=== PATIENT | male | born 1950 | race Caucasian/White ===

== ENCOUNTER 2016-07-16 18:27 | Emergency (ER) | payer OTHER, MEDICAID ==
[2016-07-16] MEDS ORDERED: FAMOTIDINE 20 MG/NACL 50 ML IV ONE (18:37)
[2016-07-16] MEDS ORDERED: LIDOCAINE 2% VISCOUS 15 ML UDCUP PO ONE (18:37)
[2016-07-16] MEDS ORDERED: MAG HYDROX/AL HYDROX/SIMETH 30 ML UDCUP PO ONE (18:37)
[2016-07-16] MEDS ORDERED: HYOSCYAMINE SULFATE 0.125 MG TAB PO ONE (18:37)
[2016-07-16] MEDS ORDERED: NS 1,000 ML IV ONE (18:37)
[2016-07-16 18:41] VITALS: TEMP 98.2; O2SAT 92
--- NOTE | 2016-07-16 18:41 | EDPHY ---
H & P Stated Complaint: SOB, GERD, treated at [facility] with Prilosec, no resolution. HPI/ROS: HPI CHIEF COMPLAINT: GERD, reflux, burning pain epigastric up to his throat, shortness of breath, congestion HISTORY OF PRESENT ILLNESS: This patient very pleasant 58-year-old male, significant past medical history for unspecified dementia, alcohol use, reflux, presents emergency room with abdominal bloating and what he describes is burning sensation in the middle epigastric region up to his throat. States it comes and goes. Feels like his previous history of GERD. Denies chest pain, chest pressure,, generalized weakness, vomiting. He was given Prilosec at [facility] where she resides this did not help him. Was sent to the emergency room further evaluation. Of note this patient is history of View systems somewhat limited due the patient 's underlying mental illness questionable dementia. Variant in-direct answers. Past Medical History: GERD, alcoholism, alcohol use, nonspecific dementia Past Surgical History: Denies recent surgeries Social History: Denies use of alcohol last 24 hours drugs tobacco Family History: Noncontributory ROS REVIEW OF SYSTEMS: A comprehensive 10 point review of systems is otherwise negative aside from elements mentioned in the history of present illness. Exam Constitutional appears well nontoxic, triage nursing summary reviewed, vital signs reviewed, awake/alert. Eyes normal conjunctivae and sclera, EOMI, PERRLA. HENT normal inspection, atraumatic, moist mucus membranes, no epistaxis, neck supple/ no meningismus, no raccoon eyes. Respiratory clear to auscultation bilaterally, normal breath sounds, no respiratory distress, no wheezing. Cardiovascular rate normal, regular rhythm, no murmur, no edema, distal pulses normal. Gastrointestinal no tender palpation, soft, non-tender, no rebound, no guarding, normal bowel sounds, no distension, no pulsatile mass. Genitourinary no CVA tenderness. Musculoskeletal no midline vertebral tenderness, full range of motion, no calf swelling, no tenderness of extremities, no meningismus, good pulses, neurovascularly intact. Skin pink, warm, & dry, no rash, skin atraumatic. Neurologic awake, alert and oriented x 3, AAOx3, moves all 4 extremities equally, motor intact, sensory intact, CN II-XII intact, normal cerebellar, normal vision, normal speech. Psychiatric normal mood/affect. Heme/Lymph/Immune no lymphadenopathy. Differential diagnosis includes but is not limited to and in no particular order : reflux, GERD, doubt ACS, Bowel obstruction, appendicitis, gallbladder disease , diverticulitis, colitis, enteritis, perforated viscus, gastritis, GERD, esophagitis, urinary tract infection, pyelonephritis, kidney stones Medical Decision Making: Plan for this patient full cardiac cath rn, IV establishment, IV Pepcid with GI cocktail, chest x-ray EKG, troponin, abdominal blood work, KUB including lipase. And re-evaluation. Re-evaluation: EKG interpretation by me on record in [employer] system. Impression time of EKG 1853, this is sinus rhythm rate of 92 LVH present. Otherwise unremarkable EKG specifically no acute ischemia no ST elevation, ST depression, T-wave abnormalities. Prolonged intervals. ED x-ray chest one view: elevated right hemidiaphragm otherwise unremarkable. Image interpreted myself ED x-ray KUB; abnormal bowel gas pattern. Image interpreted myself. No free air. No air-fluid levels. 1915: Re-evaluation at this time. Patient still complaining of abdominal distention abdominal discomfort. Blood work has been reviewed is reassuring. Lactic less than 2, nonischemic EKG. Chest x-ray and KUB reviewed. Given patient's ongoing abdominal pain, KUB that appears slightly abnormal plan on CT abdomen pelvis with IV contrast 2012: CT results called to me by Dr. garcia. CT abdomen pelvis with IV contrast shows gas is tension of the colon, otherwise no acute inflammatory process no bowel obstruction. No acute inflammatory process seen on CT. 2030: I did review this patient's blood work, CT scan findings. No acute inflammatory process seen. No evidence of infection. Patient is resting comfortably without any vomiting. Vital signs are stable. Negative troponin negative EKG. Chest x-ray KUB, CT scan reviewed. gaseous distention otherwise unremarkable. Re-examination of his abdomen at 8:30 p.m.. Abdomen is soft nontender no guarding or peritoneal signs. He feels much better would like to be discharged back. I did give him strict return precautions he understands return emergency room if he develops abdominal pain, fever, vomiting. Most likely cause of abdominal pain is gasous distention Source: Patient - Personal History Current Tetanus/Diphtheria Vaccine: Unsure Current Tetanus Diphtheria and Acellular Pertussis (TDAP): Unsure - Medical/Surgical History Hx Asthma: No Hx Chronic Respiratory Disease: No Hx Diabetes: No Hx Cardiac Disease: No Hx Renal Disease: No Hx Cirrhosis: No Hx Alcoholism: Yes Hx HIV/AIDS: No Hx Splenectomy or Spleen Trauma: No Other PMH: Essential HTN, GERD, Hypothyroidism, Dementia- and behaviour issues, ETOH abuse, ?under Adult Protective Services. - Social History Smoking Status: Unknown if ever smoked Constitutional: Initial Vital Signs Temperature (C) 36.8 C 07/16/16 18:34 Heart Rate 93 07/16/16 18:34 Respiratory Rate 20 07/16/16 18:34 Blood Pressure 150/89 H 07/16/16 18:34 O2 Sat (%) 92 07/16/16 18:34 O2 Delivery Mode Room Air Allergies/Adverse Reactions: No Known Allergies Allergy (Unverified 07/16/16 18:38) Home Medications: Medication Instructions Recorded Acetaminophen 07/16/16 Amlodipine Besylate 07/16/16 Carafate Oral Liquid 07/16/16 Cholecalciferol 07/16/16 Levothyroxine 07/16/16 Magnesium Oxide 07/16/16 Milk of Magnesia 07/16/16 Miralax 17 gm (*) 07/16/16 Omeprazole 07/16/16 Ondansetron 07/16/16 Ranitidine HCl 07/16/16 Tums Ultra 07/16/16 Medical Decision Making - Diagnostics Imaging: Imaging Impressions Abdomen X-Ray 07/16/16 18:37 Impression: Findings suggest ileus or small bowel obstruction. Chest X-Ray 07/16/16 18:38 Impression: 1. Elevation of the right hemidiaphragm. 2. Right AC joint grade 1 separation, of unknown acuity. - Data Points Laboratory Results: Laboratory Results 07/16/16 18:35 07/16/16 18:35 07/16/16 07/16/16 07/16/16 18:35 18:35 18:35 WBC 7.74 10^3/uL 10^3/uL (3.80-9.50) RBC 4.61 10^6/uL 10^6/uL (4.40-6.38) Hgb 14.8 g/dL g/dL (13.7-17.5) Hct 42.1 % % (40.0-51.0) MCV 91.3 fL fL (81.5-99.8) MCH 32.1 pg pg (27.9-34.1) MCHC 35.2 g/dL g/dL (32.4-36.7) RDW 12.9 % % (11.5-15.2) Plt Count 256 10^3/uL 10^3/uL (150-400) MPV 9.6 fL fL (8.7-11.7) Neut % (Auto) 61.2 % % (39.3-74.2) Lymph % (Auto) 21.8 % % (15.0-45.0) [place] % (Auto) 11.5 % % (4.5-13.0) Eos % (Auto) 4.4 % % (0.6-7.6) Baso % (Auto) 0.6 % % (0.3-1.7) Nucleat RBC Rel Count 0.0 % % (0.0-0.2) Absolute Neuts (auto) 4.73 10^3/uL 10^3/uL (1.70-6.50) Absolute Lymphs (auto) 1.69 10^3/uL 10^3/uL (1.00-3.00) Absolute Monos (auto) 0.89 10^3/uL H 10^3/uL (0.30-0.80) Absolute Eos (auto) 0.34 10^3/uL 10^3/uL (0.03-0.40) Absolute Basos (auto) 0.05 10^3/uL 10^3/uL (0.02-0.10) Absolute Nucleated RBC 0.00 10^3/uL 10^3/uL (0-0.01) Immature Gran % 0.5 % % (0.0-1.1) Immature Gran # 0.04 10^3/uL 10^3/uL (0.00-0.10) PT 12.4 SEC SEC (12.0-15.0) INR 0.93 (0.83-1.16) APTT 28.8 SEC SEC (23.0-38.0) VBG Lactic Acid Sodium 139 mEq/L mEq/L (134-144) Potassium 4.1 mEq/L mEq/L (3.5-5.2) Chloride 103 mEq/L mEq/L (97-110) Carbon Dioxide 27 mEq/l mEq/l (22-31) Anion Gap 9 mEq/L mEq/L (8-16) BUN 13 mg/dL mg/dL (7-23) Creatinine 1.0 mg/dL mg/dL (0.7-1.3) Estimated GFR > 60 Glucose 101 mg/dL H mg/dL (70-100) Calcium 9.5 mg/dL mg/dL (8.5-10.4) Total Bilirubin 0.5 mg/dL mg/dL (0.1-1.4) Conjugated Bilirubin 0.4 mg/dL mg/dL (0.0-0.5) Unconjugated Bilirubin 0.1 mg/dL mg/dL (0.0-1.1) AST 26 IU/L IU/L (17-59) ALT 33 IU/L IU/L (21-72) Alkaline Phosphatase 91 IU/L IU/L (38-126) Troponin I < 0.012 ng/mL ng/mL (0-0.034) Total Protein 7.4 g/dL g/dL (6.3-8.2) Albumin 4.2 g/dL g/dL (3.5-5.0) Lipase 54.0 IU/L IU/L (23-300) Ethyl Alcohol < 10 mg/dL mg/dL (0-10) 07/16/16 18:30 WBC RBC Hgb Hct MCV MCH MCHC RDW Plt Count MPV Neut % (Auto) Lymph % (Auto) [place] % (Auto) Eos % (Auto) Baso % (Auto) Nucleat RBC Rel Count Absolute Neuts (auto) Absolute Lymphs (auto) Absolute Monos (auto) Absolute Eos (auto) Absolute Basos (auto) Absolute Nucleated RBC Immature Gran % Immature Gran # PT INR APTT VBG Lactic Acid 1.9 mmol/L mmol/L (0.7-2.1) Sodium Potassium Chloride Carbon Dioxide Anion Gap BUN Creatinine Estimated GFR Glucose Calcium Total Bilirubin Conjugated Bilirubin Unconjugated Bilirubin AST ALT Alkaline Phosphatase Troponin I Total Protein Albumin Lipase Ethyl Alcohol Medications Given: Discontinued Medications Al Hydroxide/Mg Hydroxide (Maalox Susp) 30 ml PO ONCE ONE Stop: 07/16/16 18:38 Last Admin: 07/16/16 19:01 Dose: 30 ml Hydromorphone HCl (Dilaudid) 0.5 mg IVP EDNOW ONE Stop: 07/16/16 19:15 Last Admin: 07/16/16 19:37 Dose: 0.5 mg Hyoscyamine Sulfate (Levsin, Hyomax-Sl) 0.25 mg PO ONCE ONE Stop: 07/16/16 18:38 Last Admin: 07/16/16 19:01 Dose: 0.25 mg Sodium Chloride (Ns) 1,000 mls @ 0 mls/hr IV ONCE ONE PRN Reason: Wide Open Stop: 07/16/16 18:38 Last Admin: 07/16/16 19:01 Dose: 1,000 mls Famotidine/Sodium Chloride (Pepcid 20 Mg (Premix)) 50 mls @ 200 mls/hr IV EDNOW ONE Stop: 07/16/16 18:51 Last Admin: 07/16/16 19:01 Dose: 50 mls Lidocaine (Lidocaine 2% Viscous) 15 ml PO ONCE ONE Stop: 07/16/16 18:38 Last Admin: 07/16/16 19:01 Dose: 15 ml Departure - Departure Disposition: Home, Routine, Self-Care Clinical Impression: Gaseous abdominal distention GERD (gastroesophageal reflux disease) Qualifiers: Esophagitis presence: with esophagitis Qualified Code(s): K21.0 - Gastro- esophageal reflux disease with esophagitis Condition: Good Instructions: Acute Abdominal Pain (ED), Gastroesophageal Reflux Disease (ED) Additional Instructions: 1. Stay well-hydrated drink lots of fluids. 2.Do not eat spicy fatty greasy foods. Stay away from coffee or shoes. . No alcohol. 3. continue your reflux medication. 4. You had blood work that was reassuring here in the emergency room no signs of infection. Your EKG and troponin were normal. Her CT scan showed no acute infection or inflammatory process. There was some gas in your colon. Referrals: Patient,NotPresent [Unknown] - As per Instructions
[2016-07-16 18:50] LABS: % IMMATURE GRANULYOCYTES 0.5 % (0.0-1.1); ABSOLUTE IMMATURE GRANULOCYTES 0.04 10^3/uL (0.00-0.10); ADD DIFF? NO; ADD MORPH? NO; ADD SCAN? NO; ATYPICAL LYMPHOCYTE FLAG 10 (0-99); FRAGMENT RBC FLAG 0 (0-99); HEMATOCRIT 42.1 % (40.0-51.0); HEMOGLOBIN 14.8 g/dL (13.7-17.5); LEFT SHIFT FLG 0 (0-99); LIPEMIA HEMOLYSIS FLAG 90 (0-99); MEAN CELL HEMOGLOBIN 32.1 pg (27.9-34.1); MEAN CELL HEMOGLOBIN CONCENTR. 35.2 g/dL (32.4-36.7); MEAN CELL VOLUME 91.3 fL (81.5-99.8); MEAN PLATELET VOLUME 9.6 fL (8.7-11.7); PLATELET CLUMPS FLAG 0 (0-99); PLATELET COUNT 256 10^3/uL (150-400); RED BLOOD CELL COUNT 4.61 10^6/uL (4.40-6.38); RED CELL DISTRIBUTION WIDTH 12.9 % (11.5-15.2)
--- NOTE | 2016-07-16 18:56 | CPEKG ---
Heart Rate: 92 RR Interval: 652 P-R Interval: 152 QRSD Interval: 86 QT Interval: 360 QTC Interval: 446 P [place]: 41 QRS [place]: 57 T Wave [place]: 70 EKG Severity - NORMAL ECG - EKG Impression: SINUS RHYTHM Electronically Signed By: Thien Rabago 16-Jul-2016 22:46:26
[2016-07-16 18:59] LABS: APTT 28.8 SEC (23.0-38.0); INR 0.93 (0.83-1.16); PROTIME(PATIENT) 12.4 SEC (12.0-15.0)
[2016-07-16 19:09] LABS: ALANINE AMINOTRANSFERASE 33 IU/L (21-72); ALBUMIN 4.2 g/dL (3.5-5.0); ALKALINE PHOSPHATASE 91 IU/L (38-126); ANION GAP 9 mEq/L (8-16); ASPARTATE AMINOTRANSFERASE 26 IU/L (17-59); BILIRUBIN,TOTAL 0.5 mg/dL (0.1-1.4); BILIRUBIN-CONJUGATED 0.4 mg/dL (0.0-0.5); BILIRUBIN-UNCONJUGATED 0.1 mg/dL (0.0-1.1); CALCIUM 9.5 mg/dL (8.5-10.4); CARBON DIOXIDE 27 mEq/l (22-31); CHLORIDE 103 mEq/L (97-110); ETHANOL SERUM < 10 mg/dL (0-10); GLOMERULAR FILTRATION RATE > 60; GLUCOSE 101 mg/dL (70-100); POTASSIUM 4.1 mEq/L (3.5-5.2); SODIUM 139 mEq/L (134-144); TOTAL PROTEIN 7.4 g/dL (6.3-8.2)
[2016-07-16] MEDS ORDERED: HYDROmorphONE/DILAUDID 1 MG/ML SYR IVP ONE (19:14)
[2016-07-16 19:20] LABS: TROPONIN I < 0.012 ng/mL (0-0.034)
[2016-07-16] MEDS ORDERED: IOPAMIDOL (ISOVUE-300) 100 ML BTL IV ONE (19:20)
[2016-07-16] MEDS ORDERED: LORazepam 2 MG/ML INJ IM ONE (20:51)
[2016-07-16 22:37] VITALS: BP 145/87; PULSE 92; RESP 18
== END 2016-07-16 22:37 | disposition home or self-care (01) ==
DX: R14.0 Abdominal distension (gaseous) (principal); K21.0 Gastro-esophageal reflux disease with esophagitis; I10 Essential (primary) hypertension; E03.9 Hypothyroidism, unspecified; F03.91 Unspecified dementia, unspecified severity, with behavioral disturbance
CPT/HCPCS: 71010; 74000; 74177; 93005; 96361; 96365; 96372; 96375; 99285; J1170; J2060; Q9967; G0480

== ENCOUNTER 2016-09-10 09:43 | Emergency (ER) | payer OTHER, MEDICAID ==
[2016-09-10 10:01] VITALS: RESP 16
--- NOTE | 2016-09-10 10:15 | EDPHY ---
H & P Time Seen by Provider: 09/10/16 09:49 HPI/ROS: CHIEF COMPLAINT: Combative HISTORY OF PRESENT ILLNESS: This is a 66-year-old male brought in by EMS from [facility]. EMS report from [facility] patient has been combative throwing items at staff threatening staff, patient was also found to have alcohol in his room. Patient has a history of dementia and other behavioral issues. No injuries. Patient denies any alcohol use, he did state " those people were trying to go in my room, I told them was going to kill him. When I want to have a drink I should be able to have a drink" REVIEW OF SYSTEMS: Constitutional: No fever, no chills. Eyes: No discharge. ENT: No sore throat. Cardiovascular: No chest pain, no palpitations. Respiratory: No cough, no shortness of breath. Gastrointestinal: No abdominal pain, no vomiting. Genitourinary: No hematuria. Musculoskeletal: No back pain. Skin: No rashes. Neurological: No headache. Denies SI Smoking Status: Never smoked Physical Exam: General Appearance: Alert, no distress. Eyes: Pupils equal and round no pallor or injection. ENT, Mouth: Mucous membranes moist. Respiratory: There are no retractions, lungs are clear to auscultation. Cardiovascular: Regular rate and rhythm. Gastrointestinal: Abdomen is soft and nontender, no masses, bowel sounds normal. Neurological: No focal deficits Skin: Warm and dry, no rashes. Musculoskeletal: Neck is supple nontender. Extremities: symmetrical, full range of motion. Psychiatric: Patient is oriented X 3, calm, no agitation, flat affect. Constitutional: Initial Vital Signs Temperature (C) 36.6 C 09/10/16 09:43 Heart Rate 92 09/10/16 09:43 Respiratory Rate 16 09/10/16 09:43 Blood Pressure 141/92 H 09/10/16 09:43 O2 Sat (%) 93 09/10/16 09:43 O2 Delivery Mode Room Air Allergies/Adverse Reactions: No Known Allergies Allergy (Unverified 07/16/16 18:38) Home Medications: Medication Instructions Recorded Acetaminophen 07/16/16 Amlodipine Besylate 07/16/16 Carafate Oral Liquid 07/16/16 Cholecalciferol 07/16/16 Levothyroxine 07/16/16 Magnesium Oxide 07/16/16 Milk of Magnesia 07/16/16 Miralax 17 gm (*) 07/16/16 Omeprazole 07/16/16 Ondansetron 07/16/16 Ranitidine HCl 07/16/16 Tums Ultra 07/16/16 Medical Decision Making ED Course/Re-evaluation: Discussed plan of care with patient: CBC, BMP, urine drug screen, psych evaluation. 1110: Spoke with Carlos Alberto with [facility], patient appropriate to go back to [facility], Patient is not on M1 hold. 1200: patient re-evaluation no apparent distress, calm, appropriate behavior 1330: patient will be transported back to [facility]. discussed all discharge instructions with receive facility Differential Diagnosis: Other differential diagnosis considered but not limited to psychosis, AMS due to intoxication, and homicidal ideation - Data Points Laboratory Results: Laboratory Results 09/10/16 10:16 09/10/16 10:16 09/10/16 09/10/16 09/10/16 11:30 10:16 10:16 WBC 7.46 10^3/uL 10^3/uL (3.80-9.50) RBC 4.67 10^6/uL 10^6/uL (4.40-6.38) Hgb 14.8 g/dL g/dL (13.7-17.5) Hct 42.6 % % (40.0-51.0) MCV 91.2 fL fL (81.5-99.8) MCH 31.7 pg pg (27.9-34.1) MCHC 34.7 g/dL g/dL (32.4-36.7) RDW 12.8 % % (11.5-15.2) Plt Count 269 10^3/uL 10^3/uL (150-400) MPV 9.8 fL fL (8.7-11.7) Neut % (Auto) 65.1 % % (39.3-74.2) Lymph % (Auto) 21.2 % % (15.0-45.0) [place] % (Auto) 8.6 % % (4.5-13.0) Eos % (Auto) 4.3 % % (0.6-7.6) Baso % (Auto) 0.5 % % (0.3-1.7) Nucleat RBC Rel Count 0.0 % % (0.0-0.2) Absolute Neuts (auto) 4.86 10^3/uL 10^3/uL (1.70-6.50) Absolute Lymphs (auto) 1.58 10^3/uL 10^3/uL (1.00-3.00) Absolute Monos (auto) 0.64 10^3/uL 10^3/uL (0.30-0.80) Absolute Eos (auto) 0.32 10^3/uL 10^3/uL (0.03-0.40) Absolute Basos (auto) 0.04 10^3/uL 10^3/uL (0.02-0.10) Absolute Nucleated RBC 0.00 10^3/uL 10^3/uL (0-0.01) Immature Gran % 0.3 % % (0.0-1.1) Immature Gran # 0.02 10^3/uL 10^3/uL (0.00-0.10) Sodium 144 mEq/L mEq/L (134-144) Potassium 3.8 mEq/L mEq/L (3.5-5.2) Chloride 103 mEq/L mEq/L (97-110) Carbon Dioxide 27 mEq/l mEq/l (22-31) Anion Gap 14 mEq/L mEq/L (8-16) BUN 16 mg/dL mg/dL (7-23) Creatinine 0.8 mg/dL mg/dL (0.7-1.3) Estimated GFR > 60 Glucose 105 mg/dL H mg/dL (70-100) Calcium 9.5 mg/dL mg/dL (8.5-10.4) Urine Opiates Screen NEGATIVE (NEGATIVE) Urine Barbiturates NEGATIVE (NEGATIVE) Ur Phencyclidine Scrn NEGATIVE (NEGATIVE) Ur Amphetamine Screen NEGATIVE (NEGATIVE) U Benzodiazepines Scrn NEGATIVE (NEGATIVE) Urine Cocaine Screen NEGATIVE (NEGATIVE) U Marijuana (THC) Screen NEGATIVE (NEGATIVE) Ethyl Alcohol < 10 mg/dL mg/dL (0-10) Departure - Departure Disposition: Home, Routine, Self-Care Clinical Impression: Dementia Qualifiers: Dementia type: unspecified type Dementia behavioral disturbance: with behavioral disturbance Qualified Code(s): F03.91 - Unspecified dementia with behavioral disturbance Condition: Good Instructions: Dementia (ED) Additional Instructions: 1. Have patient follow up with primary care physician at [facility] Referrals: Patient,NotPresent [Primary Care Provider] - As per Instructions [facility],. [Clinic] - As per Instructions
[2016-09-10 10:24] LABS: % IMMATURE GRANULYOCYTES 0.3 % (0.0-1.1); ABSOLUTE IMMATURE GRANULOCYTES 0.02 10^3/uL (0.00-0.10); ADD DIFF? NO; ADD MORPH? NO; ADD SCAN? NO; ATYPICAL LYMPHOCYTE FLAG 10 (0-99); FRAGMENT RBC FLAG 0 (0-99); HEMATOCRIT 42.6 % (40.0-51.0); HEMOGLOBIN 14.8 g/dL (13.7-17.5); LEFT SHIFT FLG 0 (0-99); LIPEMIA HEMOLYSIS FLAG 90 (0-99); MEAN CELL HEMOGLOBIN 31.7 pg (27.9-34.1); MEAN CELL HEMOGLOBIN CONCENTR. 34.7 g/dL (32.4-36.7); MEAN CELL VOLUME 91.2 fL (81.5-99.8); MEAN PLATELET VOLUME 9.8 fL (8.7-11.7); PLATELET CLUMPS FLAG 0 (0-99); PLATELET COUNT 269 10^3/uL (150-400); RED BLOOD CELL COUNT 4.67 10^6/uL (4.40-6.38); RED CELL DISTRIBUTION WIDTH 12.8 % (11.5-15.2)
[2016-09-10 10:39] LABS: ANION GAP 14 mEq/L (8-16); CALCIUM 9.5 mg/dL (8.5-10.4); CARBON DIOXIDE 27 mEq/l (22-31); CHLORIDE 103 mEq/L (97-110); CREATININE 0.8 mg/dL (0.7-1.3); ETHANOL SERUM < 10 mg/dL (0-10); GLOMERULAR FILTRATION RATE > 60; GLUCOSE 105 mg/dL (70-100); POTASSIUM 3.8 mEq/L (3.5-5.2); SODIUM 144 mEq/L (134-144)
[2016-09-10 13:50] VITALS: BP 122/78; PULSE 81; TEMP 97.7; O2SAT 98
== END 2016-09-10 14:18 | disposition home or self-care (01) ==
LOC: EDUNIT#
DX: F03.91 Unspecified dementia, unspecified severity, with behavioral disturbance (principal)
CPT/HCPCS: 80305; G0480

== ENCOUNTER 2017-01-21 11:17 | Observation (INO) | payer OTHER, MEDICAID ==
--- NOTE | 2017-01-21 12:12 | EDPHY ---
General - Diagnostics EKG: I reviewed patient's EKG. See [email or web address] system for interpretation <Derek Lopez - Last Filed: 01/21/17 15:17> - History Smoking Status: Never smoked <Darin Raygoza - Last Filed: 01/21/17 15:53> Narrative: Independent physician exam: I evaluated and participated in the management of the patient. I also evaluated the patient independently. My co-signature indicates that I have reviewed this chart and I agree with the findings and plan of care as documented. My personal H&P findings include: The patient presents to the ED for evaluation of 2 days of abdominal pain. The patient denies prior history of the symptoms. She did have 1 episode of vomiting with mild hematemesis. The patient complains of moderate abdominal pain which is primarily in the lower abdominal region. He denies any dysuria or additional complaints. Physical exam General Appearance: Obese male, no acute distress Eyes: Pupils equal and round no pallor or injection ENT, Mouth: Mucous membranes moist Respiratory: There are no retractions, lungs are clear to auscultation Cardiovascular: Regular rate and rhythm Gastrointestinal: Tenderness to palpation noted in the right and left lower quadrants, right greater than left, no peritoneal sounds, normal bowel sounds Neurological: A&O, normal motor function, normal sensory exam, normal cranial nerves Skin: Warm and dry, no rashes Musculoskeletal: Neck is supple nontender Extremities: symmetrical, full range of motion The patient had an IV established. Laboratory studies demonstrate an elevated white blood cell count. CT scan of the abdomen pelvis demonstrates acute appendicitis. The patient received 1 g of IV Invanz. Consultation is made with General surgery. (Derek Lopez) CHIEF COMPLAINT: Abdominal pain, vomiting HISTORY OF PRESENT ILLNESS: Patient complains of 2 day history of abdominal pain, nausea and vomiting. Pain is primarily periumbilical radiates in the epigastrium. He feels is related to his reflux. Moderate to severely painful. Nausea with vomiting. One episode of bright red blood in his emesis at 8:00 a.m. this morning. No recurrent hematemesis. No dark or tarry stool. No difficulty with bowel movements. No urinary complaints. No fever chills. No chest pain or so of breath. No other associated complaints or modifying factors. REVIEW OF SYSTEMS: Ten systems reviewed and are negative unless otherwise noted in the HPI PCP: None that he recalls SPECIALISTS: [facility] Dr. uncertain PAST MEDICAL HISTORY: Dementia, reflux hypertension PAST SURGICAL HISTORY: Patient does not recall. He denies abdominal surgeries that he can remember SOCIAL HISTORY: Nonsmoker. Currently at [facility] and a locked unit due to dementia flight risk. His legal guardian is Chencho Martinez, court appointed. FAMILY HISTORY: Unknown EXAMINATION General Appearance: Alert, no distress Head: normocephalic, atraumatic Eyes: Pupils equal and round, no conjunctival pallor or injection ENT, Mouth: Mucous membranes moist. Airway patent Neck: Normal inspection, supple, non-tender Respiratory: Lungs are clear to auscultation Cardiovascular: Regular rate and rhythm. No murmur Gastrointestinal: Abdomen is soft and nondistended. Bowel sounds are diminished in all 4 quadrants but symmetrical. Mild tympany. No rigidity. No distention. No guarding. Moderately painful in all 4 quadrants. Rectal exam: Female RN university administrative assistant present. Normal tone. Normal palpation of the prostate. Normal pain stool. No russel blood Back: non-tender, no bony abnormalities Neurological: GCS 15. A&O, nonfocal, strength is symmetric in all 4 limbs. Skin: Warm and dry, no rash Extremities: Nontender, no pedal edema Psychiatric: Mood and affect normal DIFFERENTIAL DIAGNOSES: Including but not limited to upper GI bleed, gastritis, GERD, peptic ulcer disease, perforated duodenal ulcer, colitis, SBO MDM: 12:15 p.m. Abdominal epigastric pain with reports of 1 episode of hematemesis this morning. No vomiting thus far in the emergency department. I have ordered IV fluid, laboratory studies and CT scan of the abdomen pelvis. Patient has a legal guardian, and I will discuss with her. 12:20 p.m. I talked to Chencho (legal guardian appointment). She informed me that she is the legal guardian for all consents and decision making. He currently resides in [facility] under locked unit due to flight risk from dementia. 12:40 p.m. Patient re-evaluated. Still awaiting laboratory studies as he is a difficult IV access. No acute distress. Vital signs stable. 1:00 p.m. I performed a rectal exam. There is normal rectal exam tone. No mass. Stool is normal in appearance. Sent for Hemoccult testing. Laboratory studies are pending. There was difficulty obtaining IV access, and there have been recollect ordered by the lab. 1:35 p.m. CBC returns with leukocytosis. Hemoccult test negative. CT scan pending. 1:55 p.m. Attempted to re-evaluate the patient but he is currently in the CT scanner. 2:35 p.m. Notified by RN shira if the patient's IV access has been unsuccessful. This is after a blown IV at 1st attempt as CT scan. Multiple attempts have been made to restart IV and he has been unsuccessful. Proceed with noncontrast CT scan of the abdomen pelvis. I've discussed with Dr. Lopez. 3:10 p.m. [address] scan reveals evidence of acute appendicitis. Surgery will be consulted. I have re-evaluated the patient. I have confirmed that he is NPO since yesterday. 3:15 p.m. Case discussed with surgeon Dr. Nielson. He will evaluate the patient in the emergency department. 3:[address] Nielson is at bedside evaluating the patient. 3:45 p.m. I have discussed the case with his legal guardian, Chencho. Dr. Nielson has also discussed with her at this time. She is provided verbal consent for laparoscopic appendectomy with procedures as indicated. I have witness this. We have provided this phone number to anesthesiologist to obtain their consent as well. He is admitted in stable condition with plan for the OR shortly. (Darin Raygoza) - Diagnostics EKG Interpretation: EKG: Complete interpretation has been separately recorded in the [facility] archive. Summary impression: Sinus rhythm, rate 99 (Derek Lopez) Imaging Results: Imaging Impressions Abdomen/Pelvis CT 01/21/17 12:14 Impression: 1. Appendicitis. No free fluid, abscess, or evidence of perforation. 2. Cholelithiasis. No evidence of acute cholecystitis or biliary obstruction. 3. Left nephrolithiasis. No hydronephrosis or ureteral calculi. 4. No obstruction or adynamic ileus. Findings discussed with Emergency Department physician audiology assistant, Darin Raygoza PA-C, on January 21, 2917 at 1517. Attention: This CT examination is specifically designed to evaluate patients who are clinically suspected of having acute obstructive uropathy. This examination does not use radiographic contrast, and as such, provides only a limited evaluation of the abdomen, pelvis, and retroperitoneum. If there is further clinical suspicion for pathological conditions other than obstructive uropathy, a complete CT evaluation of the abdomen and pelvis utilizing intravenous, oral, and rectal contrast should be considered. Chest X-Ray 01/21/17 13:16 Impression: Radiographically similar to 07/16/2016. - Objective Vital Signs: Initial Vital Signs Temperature (C) 98.8 F 01/21/17 11:25 Heart Rate 106 H 01/21/17 11:25 Respiratory Rate 16 01/21/17 11:25 Blood Pressure 131/92 H 01/21/17 11:25 O2 Sat (%) 90 L 01/21/17 11:25 O2 Delivery Mode Room Air Allergies/Adverse Reactions: No Known Allergies Allergy (Verified 01/21/17 11:25) Home Medications: Medication Instructions Recorded Acetaminophen 07/16/16 Amlodipine Besylate 07/16/16 Carafate Oral Liquid 07/16/16 Cholecalciferol 07/16/16 Magnesium Oxide 07/16/16 Milk of Magnesia 07/16/16 Miralax 17 gm (*) 07/16/16 Omeprazole 07/16/16 Ondansetron 07/16/16 Ranitidine HCl 07/16/16 Tums Ultra 07/16/16 Ativan 01/21/17 Nexium 01/21/17 Laboratory Results: Laboratory Results 01/21/17 12:22 01/21/17 10:15 01/21/17 01/21/17 01/21/17 14:51 12:22 12:22 WBC 14.35 10^3/uL H 10^3/uL (3.80-9.50) RBC 4.72 10^6/uL 10^6/uL (4.40-6.38) Hgb 14.3 g/dL g/dL (13.7-17.5) Hct 41.8 % % (40.0-51.0) MCV 88.6 fL fL (81.5-99.8) MCH 30.3 pg pg (27.9-34.1) MCHC 34.2 g/dL g/dL (32.4-36.7) RDW 13.8 % % (11.5-15.2) Plt Count 252 10^3/uL 10^3/uL (150-400) MPV 10.1 fL fL (8.7-11.7) Neut % (Auto) 85.3 % H % (39.3-74.2) Lymph % (Auto) 6.6 % L % (15.0-45.0) Cross % (Auto) 6.1 % % (4.5-13.0) Eos % (Auto) 0.5 % L % (0.6-7.6) Baso % (Auto) 0.5 % % (0.3-1.7) Nucleat RBC Rel Count 0.0 % % (0.0-0.2) Absolute Neuts (auto) 12.25 10^3/uL H 10^3/uL (1.70-6.50) Absolute Lymphs (auto) 0.95 10^3/uL L 10^3/uL (1.00-3.00) Absolute Monos (auto) 0.87 10^3/uL H 10^3/uL (0.30-0.80) Absolute Eos (auto) 0.07 10^3/uL 10^3/uL (0.03-0.40) Absolute Basos (auto) 0.07 10^3/uL 10^3/uL (0.02-0.10) Absolute Nucleated RBC 0.00 10^3/uL 10^3/uL (0-0.01) Immature Gran % 1.0 % % (0.0-1.1) Immature Gran # 0.14 10^3/uL H 10^3/uL (0.00-0.10) PT INR APTT Sodium Potassium Chloride Carbon Dioxide Anion Gap BUN Creatinine Estimated GFR Glucose Calcium Total Bilirubin Conjugated Bilirubin Unconjugated Bilirubin AST ALT Alkaline Phosphatase Troponin I Total Protein Albumin Lipase Specimen Hemolysis Urine Color YELLOW Urine Appearance MODERATELY TURBID Urine pH 8.0 H (5.0-7.5) Ur Specific [place] 1.015 (1.002-1.030) Urine Protein NEGATIVE (NEGATIVE) Urine Ketones NEGATIVE (NEGATIVE) Urine Blood NEGATIVE (NEGATIVE) Urine Nitrate NEGATIVE (NEGATIVE) Urine Bilirubin NEGATIVE (NEGATIVE) Urine Urobilinogen NEGATIVE EU EU (0.2-1.0) Ur Leukocyte Esterase NEGATIVE (NEGATIVE) Urine RBC 1-3 /hpf /hpf (0-3) Urine WBC 1-3 /hpf /hpf (0-3) Ur Epithelial Cells NONE SEEN /lpf /lpf (NONE-1+) Amorphous Sediment PRESENT /hpf /hpf (NONE-1+) Urine Mucus TRACE /lpf /lpf (NONE-1+) Urine Yeast PRESENT /hpf /hpf (NONE SEEN) Urine Glucose NEGATIVE (NEGATIVE) Stool Occult Bld Scrn Patient ABO/Rh O POSITIVE Antibody Screen NEGATIVE 01/21/17 01/21/17 01/21/17 12:22 12:13 10:15 WBC RBC Hgb Hct MCV MCH MCHC RDW Plt Count MPV Neut % (Auto) Lymph % (Auto) Cross % (Auto) Eos % (Auto) Baso % (Auto) Nucleat RBC Rel Count Absolute Neuts (auto) Absolute Lymphs (auto) Absolute Monos (auto) Absolute Eos (auto) Absolute Basos (auto) Absolute Nucleated RBC Immature Gran % Immature Gran # PT 12.9 SEC SEC (12.0-15.0) INR 0.98 (0.83-1.16) APTT 27.4 SEC SEC (23.0-38.0) Sodium 140 mEq/L mEq/L (134-144) Potassium 5.6 mEq/L H mEq/L (3.5-5.2) Chloride 103 mEq/L mEq/L (97-110) Carbon Dioxide 22 mEq/l mEq/l (22-31) Anion Gap 15 mEq/L mEq/L (8-16) BUN 16 mg/dL mg/dL (7-23) Creatinine 0.8 mg/dL mg/dL (0.7-1.3) Estimated GFR > 60 Glucose 121 mg/dL H mg/dL (70-100) Calcium 9.4 mg/dL mg/dL (8.5-10.4) Total Bilirubin 1.3 mg/dL mg/dL (0.1-1.4) Conjugated Bilirubin 0.9 mg/dL H mg/dL (0.0-0.5) Unconjugated Bilirubin 0.4 mg/dL mg/dL (0.0-1.1) AST 44 IU/L IU/L (17-59) ALT 18 IU/L L IU/L (21-72) Alkaline Phosphatase 86 IU/L IU/L (38-126) Troponin I 0.018 ng/mL ng/mL (0.000-0.034) Total Protein 8.2 g/dL g/dL (6.3-8.2) Albumin 4.8 g/dL g/dL (3.5-5.0) Lipase 40 IU/L IU/L (23-300) Specimen Hemolysis 256 Urine Color Urine Appearance Urine pH Ur Specific [place] Urine Protein Urine Ketones Urine Blood Urine Nitrate Urine Bilirubin Urine Urobilinogen Ur Leukocyte Esterase Urine RBC Urine WBC Ur Epithelial Cells Amorphous Sediment Urine Mucus Urine Yeast Urine Glucose Stool Occult Bld Scrn NEGATIVE (NEGATIVE) Patient ABO/Rh Antibody Screen 01/21/17 10:15 WBC REJ RBC REJ Hgb REJ Hct REJ MCV REJ MCH REJ MCHC REJ RDW REJ Plt Count REJ MPV REJ Neut % (Auto) REJ Lymph % (Auto) REJ Cross % (Auto) REJ Eos % (Auto) REJ Baso % (Auto) REJ Nucleat RBC Rel Count REJ Absolute Neuts (auto) REJ Absolute Lymphs (auto) REJ Absolute Monos (auto) REJ Absolute Eos (auto) REJ Absolute Basos (auto) REJ Absolute Nucleated RBC REJ Immature Gran % REJ Immature Gran # REJ PT INR APTT Sodium Potassium Chloride Carbon Dioxide Anion Gap BUN Creatinine Estimated GFR Glucose Calcium Total Bilirubin Conjugated Bilirubin Unconjugated Bilirubin AST ALT Alkaline Phosphatase Troponin I Total Protein Albumin Lipase Specimen Hemolysis Urine Color Urine Appearance Urine pH Ur Specific [place] Urine Protein Urine Ketones Urine Blood Urine Nitrate Urine Bilirubin Urine Urobilinogen Ur Leukocyte Esterase Urine RBC Urine WBC Ur Epithelial Cells Amorphous Sediment Urine Mucus Urine Yeast Urine Glucose Stool Occult Bld Scrn Patient ABO/Rh Antibody Screen Medications Given: Discontinued Medications Pantoprazole Sodium 80 mg/ (Sodium Chloride) 100 mls @ 200 mls/hr IV ONCE ONE Stop: 01/21/17 12:43 Last Admin: 01/21/17 13:14 Dose: 100 mls Sodium Chloride (Ns) 500 mls @ 0 mls/hr IV EDNOW ONE; Wide Open PRN Reason: Protocol Stop: 01/21/17 12:56 Last Admin: 01/21/17 13:13 Dose: 500 mls Morphine Sulfate (Morphine) 4 mg IVP EDNOW ONE Stop: 01/21/17 12:55 Last Admin: 01/21/17 13:15 Dose: 4 mg Ondansetron HCl (Zofran) 4 mg IVP EDNOW ONE Stop: 01/21/17 12:55 Last Admin: 01/21/17 13:15 Dose: 4 mg Departure <Derek Lopez - Last Filed: 01/21/17 15:17> <Darin Raygoza - Last Filed: 01/21/17 15:53> - Departure Disposition: [facility] Inpatient Acute Clinical Impression: Acute appendicitis Qualifiers: Acute appendicitis type: with generalized peritonitis Qualified Code(s): K35.2 - Acute appendicitis with generalized peritonitis Condition: Good Referrals: Patient,NotPresent [Unknown] - As per Instructions
[2017-01-21] MEDS ORDERED: PANTOPRAZOLE SODIUM 80 MG in NS 100 ML IV ONE (12:14)
[2017-01-21 12:28] LABS: ALANINE AMINOTRANSFERASE 18 IU/L (21-72); ALBUMIN 4.8 g/dL (3.5-5.0); ALKALINE PHOSPHATASE 86 IU/L (38-126); ANION GAP 15 mEq/L (8-16); ASPARTATE AMINOTRANSFERASE 44 IU/L (17-59); BILIRUBIN,TOTAL 1.3 mg/dL (0.1-1.4); BILIRUBIN-CONJUGATED 0.9 mg/dL (0.0-0.5); BILIRUBIN-UNCONJUGATED 0.4 mg/dL (0.0-1.1); CALCIUM 9.4 mg/dL (8.5-10.4); CARBON DIOXIDE 22 mEq/l (22-31); CHLORIDE 103 mEq/L (97-110); CREATININE 0.8 mg/dL (0.7-1.3); GLOMERULAR FILTRATION RATE > 60; GLUCOSE 121 mg/dL (70-100); POTASSIUM 5.6 mEq/L (3.5-5.2); SODIUM 140 mEq/L (134-144); TOTAL PROTEIN 8.2 g/dL (6.3-8.2)
[2017-01-21 12:33] LABS: SPECIMEN HEMOLYSIS 256
[2017-01-21 12:44] LABS: INR 0.98 (0.83-1.16); PROTIME(PATIENT) 12.9 SEC (12.0-15.0)
[2017-01-21 12:45] LABS: APTT 27.4 SEC (23.0-38.0)
[2017-01-21] MEDS ORDERED: ONDANSETRON 4 MG/2 ML VIAL IVP ONE (12:54)
[2017-01-21] MEDS ORDERED: NS 500 ML IV ONE (12:55)
[2017-01-21 13:05] LABS: TROPONIN I 0.018 ng/mL (0.000-0.034)
[2017-01-21 13:20] LABS: ABSOLUTE IMMATURE GRANULOCYTES 0.14 10^3/uL (0.00-0.10); ADD DIFF? NO; ADD MORPH? NO; ADD SCAN? NO; ATYPICAL LYMPHOCYTE FLAG 0 (0-99); FRAGMENT RBC FLAG 0 (0-99); HEMATOCRIT 41.8 % (40.0-51.0); HEMOGLOBIN 14.3 g/dL (13.7-17.5); LEFT SHIFT FLG 20 (0-99); LIPEMIA HEMOLYSIS FLAG 90 (0-99); MEAN CELL HEMOGLOBIN 30.3 pg (27.9-34.1); MEAN CELL HEMOGLOBIN CONCENTR. 34.2 g/dL (32.4-36.7); MEAN CELL VOLUME 88.6 fL (81.5-99.8); MEAN PLATELET VOLUME 10.1 fL (8.7-11.7); PLATELET CLUMPS FLAG 20 (0-99); PLATELET COUNT 252 10^3/uL (150-400); RED BLOOD CELL COUNT 4.72 10^6/uL (4.40-6.38); RED CELL DISTRIBUTION WIDTH 13.8 % (11.5-15.2)
--- NOTE | 2017-01-21 13:26 | CPEKG ---
Heart Rate: 99 RR Interval: 606 P-R Interval: 192 QRSD Interval: 88 QT Interval: 352 QTC Interval: 452 P [place]: 35 QRS [place]: 51 T Wave [place]: 20 EKG Severity - BORDERLINE ECG - EKG Impression: SINUS RHYTHM Electronically Signed By: Derek Lopez 21-Jan-2017 13:28:52
[2017-01-21] MEDS ORDERED: IOPAMIDOL (ISOVUE-300) 100 ML BTL ONE (13:29)
[2017-01-21 15:03] LABS: COLOR YELLOW; LEUKOCYTE ESTERASE,URINE NEGATIVE (NEGATIVE); NITRITE,URINE NEGATIVE (NEGATIVE)
[2017-01-21 15:07] LABS: AMORPHOUS PRESENT /hpf (NONE-1+); MUCUS TRACE /lpf (NONE-1+); YEAST PRESENT /hpf (NONE SEEN)
[2017-01-21] MEDS ORDERED: ERTAPENEM 1 GM in NS 100 ML IV ONE (15:18)
[2017-01-21] MEDS ORDERED: BUPIVACAINE 0.5% 30 ML SDV ONE (15:47)
[2017-01-21] MEDS ORDERED: LIDOCAINE 1% 300 MG/30 ML SDV ONE (15:47)
--- NOTE | 2017-01-21 15:57 | PDGENHP ---
History and Physical - Chief Complaint Epigastric pain - History of Present Illness Jimenez Lopez is a 67-year-old gentleman who resides at [facility] with a several day presentation of epigastric pain. Workup in the emergency room included CT scan of the abdomen and pelvis for leukocytosis and generalized abdominal pain. He was found to have acute appendicitis with a fecalith consistent with acute appendicitis. He does have a power of trademark attorney Chencho Juan who has consented to surgical intervention at this time. History Information - Allergies/Home Medication List Allergies/Adverse Reactions: No Known Allergies Allergy (Verified 01/21/17 11:25) Home Medications: Acetaminophen 07/16/16 [Last Taken Unknown] Amlodipine Besylate 07/16/16 [Last Taken Unknown] Carafate Oral Liquid 07/16/16 [Last Taken Unknown] Cholecalciferol 07/16/16 [Last Taken Unknown] Magnesium Oxide 07/16/16 [Last Taken Unknown] Milk of Magnesia 07/16/16 [Last Taken Unknown] Miralax 17 gm (*) 07/16/16 [Last Taken Unknown] Omeprazole 07/16/16 [Last Taken Unknown] Ondansetron 07/16/16 [Last Taken Unknown] Ranitidine HCl 07/16/16 [Last Taken Unknown] Tums Ultra 07/16/16 [Last Taken Unknown] Ativan 01/21/17 [Last Taken Unknown] Nexium 01/21/17 [Last Taken Unknown] I have personally reviewed and updated: medical history, surgical history - Past Medical History GERD, hypertension - Surgical History Reports: hernia repair - Family History Positive for: non-pertinent - Social History Smoking Status: Never smoked Review of Systems Review of Systems: ROS: 2-9 pt reviewed & negative except for what was stated in HPI & below Gastrointestinal: Reports: abdominal pain Physical Exam Physical Exam: Temp Pulse Resp BP Pulse Ox 37 C 72 14 140/80 H 94 01/21/17 15:49 01/21/17 15:49 01/21/17 15:49 01/21/17 15:49 01/21/17 15:49 Constitutional: no apparent distress, obese Eyes: anicteric sclera, EOMI Ears, Nose, Mouth, Throat: moist mucous membranes, hard of hearing Cardiovascular: regular rate and rhythym Peripheral Pulses: 2+: carotid (R), carotid (L), dorsalis-pedis (R), dorsalis- pedis (L) Respiratory: no respiratory distress Gastrointestinal: tenderness (Right lower quadrant no rebound), distension, No hepatosplenomegally Genitourinary: no bladder fullness Skin: warm, No mottled Musculoskeletal: full muscle strength, generalized weakness Neurologic: AAOx3, CN II-XII Intact, No facial droop Psychiatric: interacting appropriately Lymph, Heme, Immunologic: No lymphadenopathy Lab Data & Imaging Review 01/21/17 12:22 01/21/17 10:15 WBC 14.35 10^3/uL (3.80-9.50) H 01/21/17 12:22 RBC 4.72 10^6/uL (4.40-6.38) 01/21/17 12:22 Hgb 14.3 g/dL (13.7-17.5) 01/21/17 12:22 Hct 41.8 % (40.0-51.0) 01/21/17 12:22 MCV 88.6 fL (81.5-99.8) 01/21/17 12:22 MCH 30.3 pg (27.9-34.1) 01/21/17 12:22 MCHC 34.2 g/dL (32.4-36.7) 01/21/17 12: RDW 13.8 % (11.5-15.2) 01/21/17 12:22 Plt Count 252 10^3/uL (150-400) 01/21/17 12:22 MPV 10.1 fL (8.7-11.7) 01/21/17 12:22 Neut % (Auto) 85.3 % (39.3-74.2) H 01/21/17 12:22 Lymph % (Auto) 6.6 % (15.0-45.0) L 01/21/17 12:22 [place] % (Auto) 6.1 % (4.5-13.0) 01/21/17 12:22 Eos % (Auto) 0.5 % (0.6-7.6) L 01/21/17 12:22 Baso % (Auto) 0.5 % (0.3-1.7) 01/21/17 12:22 Nucleat RBC Rel Count 0.0 % (0.0-0.2) 01/21/17 12:22 Absolute Neuts (auto) 12.25 10^3/uL (1.70-6.50) H 01/21/17 12:22 Absolute Lymphs (auto) 0.95 10^3/uL (1.00-3.00) L 01/21/17 12:22 Absolute Monos (auto) 0.87 10^3/uL (0.30-0.80) H 01/21/17 12:22 Absolute Eos (auto) 0.07 10^3/uL (0.03-0.40) 01/21/17 12:22 Absolute Basos (auto) 0.07 10^3/uL (0.02-0.10) 01/21/17 12:22 Absolute Nucleated RBC 0.00 10^3/uL (0-0.01) 01/21/17 12:22 Immature Gran % 1.0 % (0.0-1.1) 01/21/17 12:22 Immature Gran # 0.14 10^3/uL (0.00-0.10) H 01/21/17 12:22 PT 12.9 SEC (12.0-15.0) 01/21/17 12:22 INR 0.98 (0.83-1.16) 01/21/17 12:22 APTT 27.4 SEC (23.0-38.0) 01/21/17 12:22 Sodium 140 mEq/L (134-144) 01/21/17 10:15 Potassium 5.6 mEq/L (3.5-5.2) H 01/21/17 10:15 Chloride 103 mEq/L (97-110) 01/21/17 10:15 Carbon Dioxide 22 mEq/l (22-31) 01/21/17 10:15 Anion Gap 15 mEq/L (8-16) 01/21/17 10:15 BUN 16 mg/dL (7-23) 01/21/17 10:15 Creatinine 0.8 mg/dL (0.7-1.3) 01/21/17 10:15 Estimated GFR > 60 01/21/17 10:15 Glucose 121 mg/dL (70-100) H 01/21/17 10:15 Calcium 9.4 mg/dL (8.5-10.4) 01/21/17 10:15 Total Bilirubin 1.3 mg/dL (0.1-1.4) 01/21/17 10:15 Conjugated Bilirubin 0.9 mg/dL (0.0-0.5) H 01/21/17 10:15 Unconjugated Bilirubin 0.4 mg/dL (0.0-1.1) 01/21/17 10:15 AST 44 IU/L (17-59) 01/21/17 10:15 ALT 18 IU/L (21-72) L 01/21/17 10:15 Alkaline Phosphatase 86 IU/L (38-126) 01/21/17 10:15 Troponin I 0.018 ng/mL (0.000-0.034) 01/21/17 10:15 Total Protein 8.2 g/dL (6.3-8.2) 01/21/17 10:15 Albumin 4.8 g/dL (3.5-5.0) 01/21/17 10:15 Lipase 40 IU/L (23-300) 01/21/17 10:15 Specimen Hemolysis 256 01/21/17 10:15 Urine Color YELLOW 01/21/17 14:51 Urine Appearance MODERATELY TURBID 01/21/17 14:51 Urine pH 8.0 (5.0-7.5) H 01/21/17 14:51 Ur Specific [place] 1.015 (1.002-1.030) 01/21/17 14:51 Urine Protein NEGATIVE (NEGATIVE) 01/21/17 14:51 Urine Ketones NEGATIVE (NEGATIVE) 01/21/17 14:51 Urine Blood NEGATIVE (NEGATIVE) 01/21/17 14:51 Urine Nitrate NEGATIVE (NEGATIVE) 01/21/17 14:51 Urine Bilirubin NEGATIVE (NEGATIVE) 01/21/17 14:51 Urine Urobilinogen NEGATIVE EU (0.2-1.0) 01/21/17 14:51 Ur Leukocyte Esterase NEGATIVE (NEGATIVE) 01/21/17 14:51 Urine RBC 1-3 /hpf (0-3) 01/21/17 14:51 Urine WBC 1-3 /hpf (0-3) 01/21/17 14:51 Ur Epithelial Cells NONE SEEN /lpf (NONE-1+) 01/21/17 14:51 Amorphous Sediment PRESENT /hpf (NONE-1+) 01/21/17 14:51 Urine Mucus TRACE /lpf (NONE-1+) 01/21/17 14:51 Urine Yeast PRESENT /hpf (NONE SEEN) 01/21/17 14:51 Urine Glucose NEGATIVE (NEGATIVE) 01/21/17 14:51 Stool Occult Bld Scrn NEGATIVE (NEGATIVE) 01/21/17 12:13 Patient ABO/Rh O POSITIVE 01/21/17 12:22 Antibody Screen NEGATIVE 01/21/17 12:22 Imaging Review: Imaging Impressions Abdomen/Pelvis CT 01/21/17 12:14 Impression: 1. Appendicitis. No free fluid, abscess, or evidence of perforation. 2. Cholelithiasis. No evidence of acute cholecystitis or biliary obstruction. 3. Left nephrolithiasis. No hydronephrosis or ureteral calculi. 4. No obstruction or adynamic ileus. Findings discussed with Emergency Department physician cashier assistant, Darin Raygoza PA-C, on January 21, 2917 at 1517. Attention: This CT examination is specifically designed to evaluate patients who are clinically suspected of having acute obstructive uropathy. This examination does not use radiographic contrast, and as such, provides only a limited evaluation of the abdomen, pelvis, and retroperitoneum. If there is further clinical suspicion for pathological conditions other than obstructive uropathy, a complete CT evaluation of the abdomen and pelvis utilizing intravenous, oral, and rectal contrast should be considered. Chest X-Ray 01/21/17 13:16 Impression: Radiographically similar to 07/16/2016. Visualized and Interpreted Chest x-ray results: Yes Chest X-Ray results: no infiltrate EKG Interpretation: Positive for: normal sinsus rhythm Assessment & Plan Assessment: Acute appendicitis (Acute) Cholelithiasis asymptomatic Nonobstructing left renal lithiasis Bilateral inguinal hernia repairs Hypertension Dementia GERD Plan: Laparoscopic appendectomy. The risks benefits and alternatives been outlined with his power of trademark attorney the risks include but are not limited to bleeding, infection, injury to other structures that may require further intervention. All questions were addressed. Alternatives include non operative management which I do not believe is appropriate in this patient. Expect a 23 hour stay here and return to [facility] postoperatively. Invanz given in the emergency room Discussed with Anesthesia regarding plan of care. Verbal consent obtained from his [id number]
--- NOTE | 2017-01-21 16:00 | PDANEPAE ---
ANE Past Medical History - Cardiovascular History Hx Hypertension: Yes - Pulmonary History Hx Oxygen in Use at Home: No - Endocrine History Hx Diabetes: No ANE Review of Systems Review of Systems: ANE Patient History - Allergies Allergies/Adverse Reactions: No Known Allergies Allergy (Verified 01/21/17 11:25) - Home Medications Home Medications: Acetaminophen 07/16/16 [Last Taken Unknown] Amlodipine Besylate 07/16/16 [Last Taken Unknown] Carafate Oral Liquid 07/16/16 [Last Taken Unknown] Cholecalciferol 07/16/16 [Last Taken Unknown] Magnesium Oxide 07/16/16 [Last Taken Unknown] Milk of Magnesia 07/16/16 [Last Taken Unknown] Miralax 17 gm (*) 07/16/16 [Last Taken Unknown] Omeprazole 07/16/16 [Last Taken Unknown] Ondansetron 07/16/16 [Last Taken Unknown] Ranitidine HCl 07/16/16 [Last Taken Unknown] Tums Ultra 07/16/16 [Last Taken Unknown] Ativan 01/21/17 [Last Taken Unknown] Nexium 01/21/17 [Last Taken Unknown] - Smoking Hx Smoking Status: Never smoked ANE Labs/Vital Signs - Labs Result Diagrams: 01/21/17 12:22 01/21/17 10:15 - Vital Signs Blood Pressure: 140/80 Heart Rate: 72 Respiratory Rate: 14 O2 Sat (%): 94 Height: 175.26 cm Weight: 81.647 kg ANE Physical Exam - Airway Mallampati Score: Class 3 Mouth exam: normal dental/mouth exam - Pulmonary Pulmonary: no respiratory distress, no rales or rhonchi, clear to auscultation - Cardiovascular Cardiovascular: regular rate and rhythym, no murmur, rub, or gallop - ASA Status ASA Status: III ANE Anesthesia Plan Anesthesia Plan: general endotracheal anesthesia
[2017-01-21] MEDS ORDERED: LR 1,000 ML IV ONE (16:02)
[2017-01-21] MEDS ORDERED: PROPOFOL 200 MG/20 ML VIAL ONE ×2 (16:18→16:38)
[2017-01-21] MEDS ORDERED: fentaNYL 100 MCG/2 ML INJ ONE ×2 (16:18→16:38)
[2017-01-21] MEDS ORDERED: LIDOCAINE 2% 5 ML SDV ONE (16:19)
[2017-01-21] MEDS ORDERED: SUGAMMADEX SODIUM 200 MG/2 ML VIAL IVP ONE (16:19)
[2017-01-21] MEDS ORDERED: ROCURONIUM 50 MG/5 ML VIAL ONE ×2 (16:19→16:38)
[2017-01-21] MEDS ORDERED: KETOROLAC 30 MG/1 ML SDV ONE (16:19)
[2017-01-21] MEDS ORDERED: DEXAMETHASONE 4 MG/ML VIAL ONE (16:19)
[2017-01-21] MEDS ORDERED: ONDANSETRON 4 MG/2 ML VIAL ONE (16:19)
[2017-01-21] MEDS ORDERED: PROMETHAZINE HCL 25 MG/ML INJ IVP PRN (17:02)
[2017-01-21] MEDS ORDERED: ACETAMINOPHEN 500 MG TAB PO PRN (17:02)
[2017-01-21] MEDS ORDERED: OXYCODONE/APAP 5/325 TAB PO PRN (17:02)
[2017-01-21] MEDS ORDERED: NALOXONE HCL 0.4 MG/ML INJ IVP PRN (17:02)
[2017-01-21] MEDS ORDERED: ENALAPRILAT DIHYDRATE 1.25 MG/ML VIAL IVP PRN (17:02)
[2017-01-21] MEDS ORDERED: fentaNYL 100 MCG/2 ML INJ IVP PRN (17:02)
[2017-01-21] MEDS ORDERED: LABETALOL HCL 5 MG/ML 20 ML MDV IVP PRN (17:02)
[2017-01-21] MEDS ORDERED: ONDANSETRON 4 MG/2 ML VIAL IVP PRN ×2 (17:02→17:53)
[2017-01-21] MEDS ORDERED: LR 500 ML IV PRN (17:02)
--- NOTE | 2017-01-21 17:52 | POSTOPPROG ---
Post Op Note Date of Operation: 01/21/17 Surgeon: Juventino Nielson Fish Roe Processor: none Anesthesiologist: Lucia Figueredo Anesthesia: GET(General Endotracheal) Pre-op Diagnosis: Acute appendicitis Post-op Diagnosis: same Procedure: Lap Appy Findings: appendiceal inflammation Inf/Abcess present in the surg proc area at time of surgery?: Yes Depth: Organ Space EBL: Minimal Specimen(s): Appendix
[2017-01-21] MEDS ORDERED: HYDROCODONE/APAP 5/325 TAB PO PRN (17:53)
[2017-01-21] MEDS ORDERED: LR 1,000 ML IV SCH (18:00)
--- NOTE | 2017-01-21 18:06 | POSTANESTH ---
Post Anesthetic Evaluation Cardiovascular Status: Normal, Stable Respiratory Status: Normal, Stable, Similar to Pre-op Cond. Level of Consciousness/Mental Status: Can Participate in Eval, Mildly Sleepy, Arousable Pain Control: Adequate, Prn Tx Ordered Nausea/Vomiting Control: Adequate, Prn Tx Ordered Complications Possibly Related to Anesthesia: None Noted
--- NOTE | 2017-01-21 19:18 | GOP ---
[f rep st] OPERATIVE REPORT DATE OF OPERATION: SURGEON: Juventino Nielson MD ANESTHESIA: General endotracheal anesthesia was used. ANESTHESIOLOGIST: Thien Slater MD PREOPERATIVE DIAGNOSIS: Acute appendicitis. POSTOPERATIVE DIAGNOSIS: Acute appendicitis. PROCEDURE PERFORMED: FINDINGS: SPECIMENS: Appendix to permanent pathology. ESTIMATED BLOOD LOSS: Less than 10 mL. INDICATIONS: 67-year-old gentleman presents with abdominal pain. Exam and CT scan as well as white blood cell count of 14, consistent with acute appendicitis. After obtaining consent from his power o f assistant city attorney, the patient was brought into the operating room for urgent appendectomy. Gil[place] was give n in the emergency room for antibiotic prophylaxis. DESCRIPTION OF PROCEDURE: The patient was brought into the operating room. After induction of endot bindu anesthesia in supine position, his abdomen was prepped with chlorhexidine and draped sterilel y. Time-out procedure was then performed according to institutional standards. Local anesthetic was infused in skin and subcutaneous tissues of the trocar site. Open trocar placement was done supraum bilically. The abdomen was insufflated to 15 Torr with carbon dioxide. Working trocars were put int o the lower midline under direct visualization. The patient was placed in a left side down tilt and head down for optimal positioning for appendectomy. The appendix was in a retrocecal position. Care ful dissection of some of the retroperitoneal attachments of the colon and the small bowel were perfo rmed. The base of the appendix was identified and the appendix was divided flush with the base of th e cecum using an Endo-DOLORES stapler. The appendix was then gently teased out of its retrocecal positio n using blunt dissection and judicious use of bipolar energy LigaSure. After control of the mesenter y, the appendix was placed into an Endo pouch. Hemostasis was assured. The appendix was removed. A ll trocars were then removed. The abdomen was deflated. The patient was placed flat. The fascia wa s closed using 0 Vicryl at the level of the umbilicus. All ports were closed using Monocryl at the l evel of the skin. Dermabond was applied. The patient was awakened, extubated, and taken to the surya very room in stable condition. Needle, instrument, and sponge counts were verified to be correct x2. No immediate complications. COMPLICATIONS: There were no complications. /[id number]/MODL
[2017-01-21] MEDS ORDERED: IBUPROFEN 600 MG TAB PO PRN (22:00)
[2017-01-21] MEDS: KETOROLAC 15 MG/1 ML SDV IVP SCH ×2 (23:22→23:25)
[2017-01-22] MEDS: KETOROLAC 15 MG/1 ML SDV IVP SCH ×2 (06:06→12:53)
[2017-01-22] MEDS ORDERED: MAGNESIUM HYDROXIDE 30 ML UDCUP PO PRN (08:34)
[2017-01-22] MEDS ORDERED: CALCIUM CARBONATE 500 MG CHEWABLE TAB PO PRN (08:34)
[2017-01-22] MEDS ORDERED: POLYETHYLENE GLYCOL 3350 17 GM PKT PO PRN (08:34)
[2017-01-22] MEDS ORDERED: ONDANSETRON DISINTEGRATING 4 MG TAB PO PRN (08:34)
[2017-01-22] MEDS ORDERED: NON-FORMULARY NEW DRUG (Magnesium Hydroxide/Al Hydrox [Mylanta Liquid] 30 ML) PO PRN (08:34)
[2017-01-22] MEDS ORDERED: BISACODYL 10 MG SUPP PR PRN (08:34)
[2017-01-22] MEDS ORDERED: LORazepam 0.5 MG TAB PO PRN (08:34)
[2017-01-22] MEDS ORDERED: MAG HYDROX/AL HYDROX/SIMETH 30 ML UDCUP PO PRN (08:45)
[2017-01-22] MEDS ORDERED: CHOLECALCIFEROL VIT D3 50,000 UNIT CAP PO SCH (08:45)
[2017-01-22] MEDS ORDERED: MAGNESIUM OXIDE 400 MG TAB PO SCH (09:00)
[2017-01-22] MEDS ORDERED: CETIRIZINE 10 MG TAB PO SCH (09:00)
[2017-01-22] MEDS ORDERED: NON-FORMULARY NEW DRUG (Loratadine [Loratadine] 10 MG) PO SCH (09:00)
[2017-01-22 09:41] VITALS: TEMP 98.3
[2017-01-22] MEDS ORDERED: FLU VACC QS 2017-18 (3YR+)/PF 0.5 ML SYR (FLUARIX QUAD) IM ONE (11:59)
[2017-01-22 12:16] VITALS: BP 121/78; PULSE 90; RESP 14; O2SAT 89
--- NOTE | 2017-01-22 13:41 | PDIAF ---
- Diagnosis Code Status: Full Code - Medication Management Discharge Medications: Medications to Continue on Transfer Acetaminophen [Tylenol 325mg (*)] 650 mg PO Q4 PRN 01/21/17 [Last Taken Unknown] Bisacodyl [Dulcolax] 10 mg RC DAILY PRN 01/21/17 [Last Taken Unknown] Calcium Carbonate [Tums 500MG (*)] 1,000 - 2,000 mg PO DAILY PRN 01/21/17 [Last Taken Unknown] Cholecalciferol (Vitamin D3) [Decara] 50,000 unit PO Q30D 01/21/17 [Last Taken Unknown] Esomeprazole Mag Trihydrate [Nexium] 40 mg PO DAILY@1730 01/21/17 [Last Taken Unknown] LORazepam [Ativan (*)] 0.5 mg PO DAILY PRN 01/21/17 [Last Taken Unknown] LORazepam [Ativan (*)] 0.5 mg PO HS 01/21/17 [Last Taken Unknown] Loratadine 10 mg PO DAILY 01/21/17 [Last Taken Unknown] Magnesium Hydroxide [Milk of Magnesia] 30 ml PO DAILY PRN 01/21/17 [Last Taken Unknown] Magnesium Hydroxide/Al Hydrox [Mylanta Liquid] 30 ml PO Q6 PRN 01/21/17 [Last Taken Unknown] Magnesium Oxide [Magnesium Oxide 400 mg (*)] 400 mg PO DAILY 01/21/17 [Last Taken Unknown] Ondansetron Odt [Zofran Odt 4 mg (*)] 4 mg PO Q6 PRN 01/21/17 [Last Taken Unknown] Polyethylene Glycol 3350 [Miralax 17 gm (*)] 17 gm PO DAILY PRN 01/21/17 [Last Taken Unknown] amLODIPine BESYLATE [Amlodipine Besylate] 10 mg PO DAILY 01/21/17 [Last Taken Unknown] Hydrocodone/APAP 5/325 [[place] 5/325 (*)] 1 - 2 tab PO Q4HRS PRN #20 tab [Last Taken Unknown] Discharge Medications: Refer to the Discharge Home Medication list for PRN reason. - Orders Diet Recommendation: no restrictions on diet Diet Texture: Regular Texture Diet Wound Care Instructions: may shower. glue will fall of in 2-3 weeks Activity/Weight Bearing Restrictions: No lifting >15 lbs for 2 weeks - Follow Up Care Current Providers and Referrals: Juventino Nielson MD [Medical Doctor] - follow up in 2 weeks Patient,NotPresent [Unknown] - As per Instructions
--- NOTE | 2017-01-22 14:23 | ASMTCMCOM ---
CM Note CM Note Notes: Pt. is a 67-year-old man admitted for surgery for an acute appendicitis. Hx. alcoholism. Pt. lives in [facility] in the dementia unit. Pt. has a Court-appointed legal guardian, Chencho Martinez . SWer spoke w/ Chencho who stated that Pt. should return to [facility] and she is following him there. She understands that he does not want to live there, but at this time it is the safest place for him. Let Maxine at know that Pt. ready to return today. Pt. to d/c back to [facility] today at 14:30 via wheelchair. Let RN know. Sent d/c documentation via [employer]. Date Signed: 01/22/2017 02:22 PM Electronically Signed By:Kimber Nash LCSW
[2017-01-22] MEDS ORDERED: PANTOPRAZOLE SODIUM 40 MG TAB PO SCH (17:30)
[2017-01-22] MEDS ORDERED: NON-FORMULARY NEW DRUG (Esomeprazole Mag Trihydrate [Nexium] 40 MG) PO SCH (17:30)
--- NOTE | 2017-01-22 17:38 | ASDISCHSUM ---
Discharge Information Plan Status:SNF Medically Cleared to Leave: Discharge Date:01/22/2017 03:13 PM CM D/C Disposition:Half-Way Facility ADT D/C Disposition:Half-Way Facility Projected Discharge Date:01/22/2017 02:30 PM Transportation at D/C:Wheelchair Van Discharge Delay Reason: Follow-Up Date:01/22/2017 02:30 PM Discharge Slot: Final Diagnosis: Placement Information Referral Type:*Skilled Nursing/SNF Referral ID:[id number] Provider Name:Slade Jennings/[facility] Address 1:[address] [facility] Phone Number: Address 2: Fax Number: [facility]:[place] Selection Factors: State:[place] Patient Contact Information Contact Name:MIRIAM Relationship:Other Address:[address] Work Phone: City: [facility] Phone: [facility] Code: Email: Financial Information Financial Class: Primary Plan Desc:MEDICARE OUTPATIENT Primary Plan Number:[id number] Secondary Plan Desc: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 is a 67-year-old man admitted for surgery for an acute appendicitis. Hx. alcoholism. Pt. lives in [facility] in the dementia unit. Pt. has a Court-appointed legal guardian, Chencho Martinez . SWer spoke w/ Chencho who stated that Pt. should return to [facility] and she is following him there. She understands that he does not want to live there, but at this time it is the safest place for him. Let Maxine at know that Pt. ready to return today. Pt. to d/c back to [facility] today at 14:30 via wheelchair. Let RN know. Sent d/c documentation via [employer]. Date Signed: 01/22/2017 02:22 PM Electronically Signed By:Kimber Nash LCSW Intervention Information
[2017-01-22] MEDS ORDERED: LORazepam 0.5 MG TAB PO SCH (21:00)
== END 2017-01-22 15:13 ==
LOC: EDUNIT# → INTOOBSV 15:36 → F3E 19:05
PROVIDERS: ADMIT Surgery; ATTEND Surgery
PROC: 0DTJ4ZZ Resection of Appendix, Percutaneous Endoscopic Approach (ICD-10-PCS; principal; 2017-01-21 16:00)
DX: K35.80 Unspecified acute appendicitis (principal); I10 Essential (primary) hypertension; Z23 Encounter for immunization
CPT/HCPCS: 44970; 71010; 74176; 88304; 90686; 93005; 96365; 96366; 96375; 99285; G0008; G0378; J1100; J1335; J1885; J2405; J2704; J3010; Q9967

== ENCOUNTER 2017-03-16 09:07 | Emergency (ER) | payer OTHER, MEDICAID ==
[2017-03-16 09:19] VITALS: RESP 16
--- NOTE | 2017-03-16 09:32 | CPEKG ---
Heart Rate: 87 RR Interval: 690 P-R Interval: 164 QRSD Interval: 88 QT Interval: 356 QTC Interval: 429 P [place]: 30 QRS [place]: 34 T Wave [place]: 22 EKG Severity - NORMAL ECG - EKG Impression: SINUS RHYTHM Electronically Signed By: Jose England 18-Mar-2017 05:31:35
[2017-03-16 09:45] LABS: % IMMATURE GRANULYOCYTES 0.5 % (0.0-1.1); ABSOLUTE IMMATURE GRANULOCYTES 0.03 10^3/uL (0.00-0.10); ADD DIFF? NO; ADD MORPH? NO; ADD SCAN? NO; ATYPICAL LYMPHOCYTE FLAG 0 (0-99); FRAGMENT RBC FLAG 0 (0-99); HEMATOCRIT 40.6 % (40.0-51.0); HEMOGLOBIN 14.4 g/dL (13.7-17.5); LEFT SHIFT FLG 0 (0-99); LIPEMIA HEMOLYSIS FLAG 90 (0-99); MEAN CELL HEMOGLOBIN 31.5 pg (27.9-34.1); MEAN CELL HEMOGLOBIN CONCENTR. 35.5 g/dL (32.4-36.7); MEAN CELL VOLUME 88.8 fL (81.5-99.8); MEAN PLATELET VOLUME 9.6 fL (8.7-11.7); PLATELET CLUMPS FLAG 0 (0-99); PLATELET COUNT 240 10^3/uL (150-400); RED BLOOD CELL COUNT 4.57 10^6/uL (4.40-6.38)
--- NOTE | 2017-03-16 09:55 | EDPHY ---
HPI/HX/ROS/PE/MDM Narrative: CHIEF COMPLAINT: Abdominal pain, leg swelling HISTORY OF PRESENT ILLNESS: This patient is a 67 year old male with history of dementia and diverticulitis arriving via EMS from [facility] complaining of weakness, abdominal pain, and lower extremity swelling. He has noted lower extremity swelling for the last two weeks. He denies shortness of breath or chest pain. He complains of generalized abdominal pain and states he has not had a bowel movement in 3-4 days. He denies fever, chills, palpitations, vomiting, diarrhea, urinary complaints, headache, or lightheadedness. REVIEW OF SYSTEMS: Aside from elements discussed in the HPI, a comprehensive 10-point review of systems was reviewed and is negative. PAST MEDICAL HISTORY: 1. Hypertension 2. History of diverticulitis 3. Hypothyroid 4. Reflux 5. Dementia SOCIAL HISTORY: Lives at [facility]. Single. Retired. VITAL SIGNS: Reviewed by me GENERAL: Well-developed, well-nourished, resting comfortably in no respiratory distress. HEENT: Atraumatic. Eyes: No icterus, no injection. Mouth: moist mucous membranes. No erythema or lesions. Neck: supple with no adenopathy. LUNGS: Clear to auscultation bilaterally, no wheezes, rhonchi or rales. CARDIAC: Regular rate and rhythm, no rubs, murmurs or gallops. ABDOMEN: Soft, supraumbilical tenderness, nondistended, no guarding or rebound. BACK: No CVA tenderness. EXTREMITIES: Trace pretibial edema. 2-3+ pitting edema in ankles bilaterally. No trauma. Range of motion is normal throughout. NEURO: Alert and oriented, grossly nonfocal. SKIN: Warm and dry, no rash. PSYCHIATRIC: Normal mentation, no agitation. Portions of this note were transcribed by a resident medical officer. I personally performed a history, physical exam, medical decision making, and confirmed accuracy of information the transcribed note. ED Course: 67 y/o male with history of dementia and diverticulitis presents with abdominal pain, weakness, bilateral lower extremity swelling. Exam reveals generalized abdominal tenderness, primarily supraumbilical. No guarding or rebound. 2-3+ pitting edema in ankles bilaterally. IV established. Plan for labs including CBC , chemistries, troponin, lipase, UA. Plan for EKG, chest x-ray. Plan for CT abdomen/pelvis. 12-LEAD EKG: Please see the full report in [employer]. My interpretation: Normal sinus rhythm Further information obtained from the patient's assisted living facility. Per caretakers, the patient called 911 himself for evaluation. He did have a bowel movement yesterday. Laboratory studies unremarkable. UA negative for UTI. 12:[address] Irizarry, radiologist. CT abdomen/pelvis negative for acute processes. Plan to discharge back to his assisted living facility in good condition. I see no explanation for the patient's abdominal pain, weakness, or swelling on workup today. Laboratory studies are within normal limits, Troponin negative, EKG shows sinus rhythm, CT negative for acute processes. The patient will follow up with his primary care physician for further evaluation. Return precautions discussed. He is comfortable with this plan. MDM: After obtaining the patient's history and performing an examination, differential diagnosis considered included but was not limited to appendicitis, cholecystitis, gastritis, pancreatitis, kidney stones, urinary tract infections , constipation and other causes. - Data Points Imaging Results: Impression: 1. Coronary artery disease, without evidence for failure. 2. No evidence for inferior vena cava thrombosis or compression. 3. Right hemidiaphragm elevation with adjacent atelectasis. If there is concern for paralysis, chest fluoroscopy might be useful. Also called and discussed with Dr. Mcdonald at 12:07 PM. Dictated By: Karthikeyan Irizarry MD Imaging: Discussed imaging studies w/ welfare project manager Radiologist, I viewed and interpreted images myself Laboratory Results: Laboratory Results 03/16/17 09:34 03/16/17 09:34 General Time Seen by Provider: 03/16/17 09:38 Initial Vital Signs: Initial Vital Signs Temperature (C) 36.4 C 03/16/17 09:17 Heart Rate 91 03/16/17 09:17 Respiratory Rate 16 03/16/17 09:17 Blood Pressure 155/83 H 03/16/17 09:17 O2 Sat (%) 88 L 03/16/17 09:17 O2 Delivery Mode Room Air O2 (L/minute) 2 Allergies/Adverse Reactions: No Known Allergies Allergy (Verified 01/21/17 11:25) Home Medications: Medication Instructions Recorded Acetaminophen [Tylenol 325mg (*)] 650 mg PO Q4 PRN 01/21/17 Bisacodyl [Dulcolax] 10 mg RC DAILY PRN 01/21/17 Calcium Carbonate [Tums 500MG (*)] 1,000 - 2,000 mg PO DAILY PRN 01/21/17 Cholecalciferol (Vitamin D3) 50,000 unit PO Q30D 01/21/17 [Decara] Esomeprazole Mag Trihydrate 40 mg PO DAILY@1730 01/21/17 [Nexium] LORazepam [Ativan (*)] 0.5 mg PO DAILY PRN 01/21/17 LORazepam [Ativan (*)] 0.5 mg PO HS 01/21/17 Loratadine 10 mg PO DAILY 01/21/17 Magnesium Hydroxide [Milk of 30 ml PO DAILY PRN 01/21/17 Magnesia] Magnesium Hydroxide/Al Hydrox 30 ml PO Q6 PRN 01/21/17 [Mylanta Liquid] Magnesium Oxide [Magnesium Oxide 400 mg PO DAILY 01/21/17 400 mg (*)] Ondansetron Odt [Zofran Odt 4 mg 4 mg PO Q6 PRN 01/21/17 (*)] Polyethylene Glycol 3350 [Miralax 17 gm PO DAILY PRN 01/21/17 17 gm (*)] amLODIPine BESYLATE [Amlodipine 10 mg PO DAILY 01/21/17 Besylate] Hydrocodone/APAP 5/325 [[place] 1 - 2 tab PO Q4HRS PRN #20 tab 01/22/17 5/325 (*)] Departure - Departure Disposition: Home, Routine, Self-Care Clinical Impression: Abdominal pain Qualifiers: Abdominal location: generalized Qualified Code(s): R10.84 - Generalized abdominal pain Ankle swelling Qualifiers: Laterality: unspecified laterality Qualified Code(s): M25.473 - Effusion, unspecified ankle Condition: Good Instructions: Abdominal Pain (ED) Additional Instructions: 1. Follow up with your primary care physician by the end of this week. 2. Return to the emergency department for fever, chest pain, shortness of breath , increasing abdominal pain, uncontrollable vomiting or diarrhea, or other worsening of condition. Referrals: Louise Reyes MD [Medical Doctor] - As per Instructions Report Scribed for: Cheri Mcdonald Report Scribed by: Charlene Galeas Date of Report: 03/16/17 Time of Report: 09:55
[2017-03-16 10:00] LABS: ALANINE AMINOTRANSFERASE 31 IU/L (21-72); ALBUMIN 4.4 g/dL (3.5-5.0); ALKALINE PHOSPHATASE 82 IU/L (38-126); ANION GAP 14 mEq/L (8-16); ASPARTATE AMINOTRANSFERASE 22 IU/L (17-59); BILIRUBIN,TOTAL 0.4 mg/dL (0.1-1.4); CALCIUM 9.5 mg/dL (8.5-10.4); CARBON DIOXIDE 25 mEq/l (22-31); CHLORIDE 108 mEq/L (97-110); CREATININE 0.9 mg/dL (0.7-1.3); GLOMERULAR FILTRATION RATE > 60; GLUCOSE 93 mg/dL (70-100); SODIUM 147 mEq/L (134-144); TOTAL PROTEIN 7.2 g/dL (6.3-8.2)
[2017-03-16 10:34] LABS: TROPONIN I < 0.012 ng/mL (0.000-0.034)
[2017-03-16 11:07] LABS: COLOR YELLOW; LEUKOCYTE ESTERASE,URINE NEGATIVE (NEGATIVE); NITRITE,URINE NEGATIVE (NEGATIVE)
[2017-03-16] MEDS ORDERED: IOPAMIDOL (ISOVUE-300) 100 ML BTL ONE (11:21)
[2017-03-16 11:40] LABS: AMORPHOUS PRESENT /hpf (NONE-1+); MUCUS TRACE /lpf (NONE-1+)
[2017-03-16 13:49] VITALS: BP 135/80; PULSE 86; TEMP 98.6; O2SAT 92
--- NOTE | 2017-03-16 14:06 | ASDISCHSUM ---
Discharge Information Plan Status:SNF Medically Cleared to Leave: Discharge Date:03/16/2017 01:48 PM D/C Disposition:Shelter Facility ADT D/C Disposition:Home, Routine, Self-Care Projected Discharge Date:03/16/2017 01:48 PM Transportation at D/C:Wheelchair Van Discharge Delay Reason: Follow-Up Date:03/16/2017 01:48 PM Discharge Slot: Final Diagnosis: Placement Information Patient Contact Information Contact Name:MIRIAM Relationship:Other Address:[address] Work Phone: City: [facility] Phone: State/Zip Code: Email: Financial Information Financial Class: Primary Plan Desc:MEDICARE OUTPATIENT Primary Plan Number:[id number] Secondary Plan Desc:MEDICAID HEALTH FIRST ASSEMBLER SMALL PRODUCTS Secondary Plan Number:[id number] Assessment Information LACE LACE Acuity / Level of Care Answers: No. Comorbidities - select Answers: Dementia all that apply Emergency dept visits in Answers: 4+ last 6 months Score: 7 Date Signed: 03/16/2017 02:01 PM Electronically Signed By:Kimber Bailey RN Intervention Information Intervention Type:Transportation Date of Service:03/16/2017 02:01 PM Patient Type:Emergency Room Staff Member:ALEXA Bailey Sharon Hours:0.25 Discipline:Director Orange Severity: Comment:Contacted Slade Jennings, spoke with An aly who arranged for patient to be picked up b y their wheelchair van transport.
== END 2017-03-16 13:48 | disposition home or self-care (01) ==
LOC: EDUNIT#
DX: R10.84 Generalized abdominal pain (principal); I10 Essential (primary) hypertension; M25.471 Effusion, right ankle; M25.472 Effusion, left ankle
CPT/HCPCS: 71020; 74177; 93005; 99285; Q9967

== ENCOUNTER → 2017-04-27 | Outpatient (CLI) | payer OTHER, MEDICAID | LOC: FIMAGING 09:48 | PROVIDERS: ATTEND Physician Assistant | DX: R13.10 Dysphagia, unspecified (principal); K44.9 Diaphragmatic hernia without obstruction or gangrene; K21.9 Gastro-esophageal reflux disease without esophagitis; M25.78 Osteophyte, vertebrae ==

== ENCOUNTER → 2017-07-27 | Outpatient (CLI) | payer OTHER, MEDICAID ==
[~2017-07-27] MED LIST: IOPAMIDOL (ISOVUE 370) 100 ML BTL IV ONE
== END ==
LOC: FIMAGING 09:33
DX: K80.20 Calculus of gallbladder without cholecystitis without obstruction (principal); N20.0 Calculus of kidney
CPT/HCPCS: 74160; Q9967

== ENCOUNTER 2017-09-17 11:34 | Emergency (ER) | payer OTHER, MEDICAID ==
[2017-09-17 12:16] LABS: PLATELET COUNT 245 10^3/uL (150-400)
[2017-09-17] MEDS ORDERED: NS 1,000 ML IV ONE (13:14)
[2017-09-17 13:27] VITALS: BP 136/89
--- NOTE | 2017-09-17 13:50 | EDPHY ---
H & P Time Seen by Provider: 09/17/17 11:45 HPI/ROS: 67-year-old male sent here from the assisted living a with complaint of trouble urinating for the last 24 hr. Patient complains of suprapubic pain. He has no prior history of obstructive uropathy. He additionally has no history of prostate cancer or urinary tract infection. He denies fever and chills. Cannot state when his last urine output was. He denies any new medication. Denies flank pain or history of kidney stone. Smoking Status: Never smoked Physical Exam: General Appearance: Alert and no distress. Eyes: Pupils equal and round no injection. Respiratory: Chest is nontender, lungs are clear to auscultation. Cardiac: regular rate and rhythm. Gastrointestinal: Abdomen is soft and with suprapubic tenderness, no masses, bowel sounds normal. Repeat exam after a Morales placed reveals nontender abdomen. Musculoskeletal: Neck is supple and nontender. Extremities have full range of motion and are nontender. Skin: No rashes or lesions. Constitutional: Initial Vital Signs Heart Rate 98 09/17/17 12:14 Respiratory Rate 18 09/17/17 12:14 Blood Pressure 120/76 09/17/17 12:14 O2 Sat (%) 95 09/17/17 12:14 O2 Delivery Mode Nasal Cannula O2 (L/minute) 2 Allergies/Adverse Reactions: No Known Allergies Allergy (Verified 01/21/17 11:25) Home Medications: Medication Instructions Recorded Acetaminophen [Tylenol 325mg (*)] 650 mg PO Q4 PRN 01/21/17 Bisacodyl [Dulcolax] 10 mg RC DAILY PRN 01/21/17 Calcium Carbonate [Tums 500MG (*)] 1,000 - 2,000 mg PO DAILY PRN 01/21/17 Cholecalciferol (Vitamin D3) 50,000 unit PO Q30D 01/21/17 [Decara] Esomeprazole Mag Trihydrate 40 mg PO DAILY@1730 01/21/17 [Nexium] LORazepam [Ativan (*)] 0.5 mg PO DAILY PRN 01/21/17 LORazepam [Ativan (*)] 0.5 mg PO HS 01/21/17 Loratadine 10 mg PO DAILY 01/21/17 Magnesium Hydroxide [Milk of 30 ml PO DAILY PRN 01/21/17 Magnesia] Magnesium Hydroxide/Al Hydrox 30 ml PO Q6 PRN 01/21/17 [Mylanta Liquid] Magnesium Oxide [Magnesium Oxide 400 mg PO DAILY 01/21/17 400 mg (*)] Ondansetron Odt [Zofran Odt 4 mg 4 mg PO Q6 PRN 01/21/17 (*)] Polyethylene Glycol 3350 [Miralax 17 gm PO DAILY PRN 01/21/17 17 gm (*)] amLODIPine BESYLATE [Amlodipine 10 mg PO DAILY 01/21/17 Besylate] Hydrocodone/APAP 5/325 [[place] 1 - 2 tab PO Q4HRS PRN #20 tab 01/22/17 5/325 (*)] Medical Decision Making ED Course/Re-evaluation: 67-year-old male here with suprapubic pain and trouble urinating. Bladder scan revealed approximately 900 mL of urine in the bladder. Morales catheter was placed and urine was drained. The urine revealed hematuria without signs of UTI. Kidney function was well maintained and electrolytes showed mildly elevated potassium. Patient was given follow-up with Urology. I discussed this with his medical [id number] Meghan Martinez. Patient feels significantly improved after Morales catheter was placed Differential Diagnosis: Renal colic, prostatitis, enlarged prostate, prostate cancer, UTI, bladder cancer - Data Points Laboratory Results: Laboratory Results 09/17/17 12:05 09/17/17 12:05 09/17/17 09/17/17 09/17/17 12:25 12:05 12:05 WBC 9.82 10^3/uL H 10^3/uL (3.80-9.50) RBC 5.06 10^6/uL 10^6/uL (4.40-6.38) Hgb 15.7 g/dL g/dL (13.7-17.5) Hct 46.2 % % (40.0-51.0) MCV 91.3 fL fL (81.5-99.8) MCH 31.0 pg pg (27.9-34.1) MCHC 34.0 g/dL g/dL (32.4-36.7) RDW 15.9 % H % (11.5-15.2) Plt Count 245 10^3/uL 10^3/uL (150-400) MPV 9.2 fL fL (8.7-11.7) Neut % (Auto) 87.0 % H % (39.3-74.2) Lymph % (Auto) 8.4 % L % (15.0-45.0) [place] % (Auto) 3.1 % L % (4.5-13.0) Eos % (Auto) 0.2 % L % (0.6-7.6) Baso % (Auto) 0.7 % % (0.3-1.7) Nucleat RBC Rel Count 0.0 % % (0.0-0.2) Absolute Neuts (auto) 8.55 10^3/uL H 10^3/uL (1.70-6.50) Absolute Lymphs (auto) 0.82 10^3/uL L 10^3/uL (1.00-3.00) Absolute Monos (auto) 0.30 10^3/uL 10^3/uL (0.30-0.80) Absolute Eos (auto) 0.02 10^3/uL L 10^3/uL (0.03-0.40) Absolute Basos (auto) 0.07 10^3/uL 10^3/uL (0.02-0.10) Absolute Nucleated RBC 0.00 10^3/uL 10^3/uL (0-0.01) Immature Gran % 0.6 % % (0.0-1.1) Immature Gran # 0.06 10^3/uL 10^3/uL (0.00-0.10) Sodium 146 mEq/L H mEq/L (135-145) Potassium 5.1 mEq/L H mEq/L (3.3-5.0) Chloride 103 mEq/L mEq/L (97-110) Carbon Dioxide 18 mEq/l L mEq/l (22-31) Anion Gap 25 mEq/L H mEq/L (8-16) BUN 22 mg/dL mg/dL (7-23) Creatinine 0.9 mg/dL mg/dL (0.7-1.3) Estimated GFR > 60 Glucose 69 mg/dL L mg/dL (70-100) Calcium 9.3 mg/dL mg/dL (8.5-10.4) Total Bilirubin 0.7 mg/dL mg/dL (0.1-1.4) AST 44 IU/L IU/L (17-59) ALT 41 IU/L IU/L (21-72) Alkaline Phosphatase 91 IU/L IU/L (38-126) Total Protein 8.5 g/dL H g/dL (6.3-8.2) Albumin 5.1 g/dL H g/dL (3.5-5.0) Urine Color YELLOW Urine Appearance CLEAR Urine pH 6.0 (5.0-7.5) Ur Specific [place] 1.009 (1.002-1.030) Urine Protein NEGATIVE (NEGATIVE) Urine Ketones NEGATIVE (NEGATIVE) Urine Blood 2+ H (NEGATIVE) Urine Nitrate NEGATIVE (NEGATIVE) Urine Bilirubin NEGATIVE (NEGATIVE) Urine Urobilinogen NEGATIVE EU EU (0.2-1.0) Ur Leukocyte Esterase NEGATIVE (NEGATIVE) Urine RBC 1-3 /hpf /hpf (0-3) Urine WBC 1-3 /hpf /hpf (0-3) Ur Epithelial Cells NONE SEEN /lpf /lpf (NONE-1+) Urine Mucus TRACE /lpf /lpf (NONE-1+) Urine Glucose NEGATIVE (NEGATIVE) Medications Given: Discontinued Medications Sodium Chloride (Ns) 1,000 mls @ 0 mls/hr IV EDNOW ONE; Wide Open PRN Reason: Protocol Stop: 09/17/17 13:15 Last Admin: 09/17/17 13:30 Dose: 1,000 mls Departure - Departure Disposition: Home, Routine, Self-Care Clinical Impression: Urinary obstruction, unspecified, Hematuria Condition: Good Instructions: Urinary Retention in Men (ED), Morales Catheter Placement and Care (ED) Additional Instructions: Patient needs follow-up with Urology in the next 3-5 days. Please call and schedule with the urologist listed on this discharge paperwork. Return to the ER for any fever or worsening symptoms. Additionally has a slightly elevated potassium. Please have his primary care physician recheck his potassium in 2-3 days. Referrals: ROMANA MATHIAS [Other] - As per Instructions Hugo Devine MD [Medical Doctor] - As per Instructions
== END 2017-09-17 14:21 | disposition home or self-care (01) ==
LOC: EDUNIT#
PROC: 0T9B70Z Drainage of Bladder with Drainage Device, Via Natural or Artificial Opening (ICD-10-PCS; principal; 2017-09-17)
DX: N13.9 Obstructive and reflux uropathy, unspecified (principal); R31.9 Hematuria, unspecified; E86.9 Volume depletion, unspecified